=== PATIENT | male | born 1945 | race Caucasian/White ===

== ENCOUNTER 2016-05-18 16:40 | Emergency (ER) | payer MEDICARE, OTHER ==
--- OUTSIDE RECORDS SUMMARY | 2016-05-18 21:14 | XMS REPORT | Continuity of Care Document ---
:1945 Author Organization [facility] ([facility]) Address [address] [place] [address] Phone [phone] Care Team Providers Name Role Phone Unavailable Primary Care Provider Unavailable Source Comments This disclosure is being made pursuant to the Care Everywhere program, applicable federal and state laws, and may not contain all informaitonavailable regarding this patient.[facility] ([facility]) Active Allergies and Adverse Reactions Not on File Current Medications Not on file Active Problems Not on file Social History Tobacco Use Types Packs/Day Years Used Date Never Assessed Plan of Care Health Maintenance Due Date Last Done Comments HCV Screening 1945 Hepatitis B Vaccine (1 of 3 - Primary Series) 1945 Tdap Vaccine 1957 Lipid Disorder Screening 1964 Td Vaccine 1963 Colonoscopy 04/10/1996 Prostate Cancer Screening 1996 Zoster Vaccine 2006 Pneumococcal Vaccine (1 of 2 - PCV13) 2011 Influenza Vaccine: Seasonal (#1) 10/27/2015 Results from Last 3 Months Not on file
[2016-05-18 21:15] LABS: Hematocrit 33.5 % (42.0-52.0); Hemoglobin 11.1 gm/dL (13.5-18.0); Mean Cell Volume 97.1 fl (78-100); Mean Corpuscular Hemoglobin 32.2 pg (27-31); Mean Corpuscular Hgb Conc 33.1 g/dl (32-36); Mean Platelet Volume 11.3 fl (6.0-9.5); Neutrophil # 11.9 K/mm3 (1.3-6.0); Neutrophil % 81.7 % (42-75.0); Platelet Count 269 K/mm3 (150-450); Red Blood Count 3.45 M/mm3 (4.7-6.0); Red Cell Distribution Width 13.5 % (11.5-14.0); White Blood Count 14.6 K/mm3 (4.0-10.5)
[2016-05-18 21:16] LABS: ALT 16 U/L (19-67); AST 15 U/L (0-48); Albumin * 3.3 gm/dl (3.4-5.0); Alkaline Phosphatase * 85 U/L (50-170); Anion Gap 16.9 mmol/L (6.8-13.8); BUN/Creatinine Ratio 26.1 (9.0-21.6); Bilirubin, Total 0.2 mg/dL (0.0-1.1); Blood Urea Nitrogen 71 mg/dL (6-23); Ca. Corrected For Albumin 9.1 mg/dL (8.4-10.2); Calcium * 8.9 mg/dL (7.9-10.9); Carbon Dioxide 21.5 mmol/L (24-32.6); Chloride 108 mmol/L (97-106); Glucose * 107 mg/dL (70-110); Potassium 4.4 mmol/L (3.4-4.6); Sodium 142 mmol/L (132-142); Total Protein 7.7 gm/dL (6.2-8.2)
[2016-05-18 21:17] LABS: Troponin I Less than 0.017 ng/ml (0.00-0.10)
[2016-05-18 21:19] LABS: Urine Bilirubin Negative (NEGATIVE); Urine Blood 25 /ul (NEGATIVE); Urine Ketone Negative (NEGATIVE); Urine Nitrite Negative (NEGATIVE); Urine Protein >=300 mg/dL (NEGATIVE); Urine Specific Gravity >=1.030 SP.GR. (1.005-1.030); Urine Urobilinogen Normal (NORMAL); Urine pH 5.5 pH (5.0-7.0)
[2016-05-18 21:28] LABS: Cocaine Ur Negative (NEGATIVE); Urine Barbiturate Negative (NEGATIVE); Urine Benzodiazepines Negative (NEGATIVE); Urine Opiates Negative (NEGATIVE); Urine PCP Negative (NEGATIVE); Urine THC Negative (NEGATIVE)
[2016-05-18 21:40] LABS: Urine Appearance Clear; Urine Bacteria None Seen; Urine Color Yellow; Urine RBC None Seen /hpf (0-5); Urine WBC None Seen /hpf (0-5)
[2016-05-18] MEDS ORDERED: NORMAL SALINE 1,000 ML IV ONE (21:41)
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
[2016-05-18 22:43] VITALS: BP 135/78
== END 2016-05-18 21:45 | disposition home or self-care (01) ==
LOC: ER 16:40
DX: R55 Syncope and collapse (principal); R11.10 Vomiting, unspecified; R19.7 Diarrhea, unspecified; F17.210 Nicotine dependence, cigarettes, uncomplicated; E78.5 Hyperlipidemia, unspecified; I10 Essential (primary) hypertension
CPT/HCPCS: 36415; 70450; 80053; 80307; 81001; 84484; 85025; 87400; 93005; 99282; G0481